=== PATIENT | female | born 2000 | race Two or more races ===

== ENCOUNTER 2019-11-03 16:43 | Emergency (ER) | payer MEDICAID, OTHER ==
[~2019-11-03] VITALS: Ht 162.6 cm; Wt 72.6 kg
[2019-11-03 17:04] VITALS: BP 123/85
[2019-11-03] MEDS ORDERED: SILVER SULFADIAZINE 1 % TOPICAL CREAM 50GM TOP ONE (17:45)
== END 2019-11-03 18:28 | disposition home or self-care (01) ==
LOC: ER 16:43 → EDBD 16:43 → ER 18:28
DX: T22.111A Burn of first degree of right forearm, initial encounter (principal); T23.271A Burn of second degree of right wrist, initial encounter; X10.2XXA Contact with fats and cooking oils, initial encounter; Y93.G9 Activity, other involving cooking and grilling; Y92.511 Restaurant or cafe as the place of occurrence of the external cause; Y99.8 Other external cause status
CPT/HCPCS: 16000